=== PATIENT | female | born 1970 | race Caucasian/White ===

== ENCOUNTER → 2024-11-16 | Outpatient (REF) | payer BC ==
[2024-11-16 14:00] LABS: ALT/SGPT 35.0 U/L (7.0-40); AST/SGOT 25.0 U/L (<34); CALCIUM LEVEL 9.1 MG/DL (8.5-10.1); CARBON DIOXIDE LEVEL 29.0 MMOL/L (20-31); CHLORIDE LEVEL 109.0 MMOL/L (98-107); CREATININE FOR GFR 0.86 MG/DL (0.55-1.30); GLOMERULAR FILTRATION RATE 79.7 (>51); POTASSIUM SERUM 4.5 MMOL/L (3.5-5.1); SODIUM LEVEL 142.0 MMOL/L (136-145)
[2024-11-16 14:01] LABS: BASO # 0.1 10^3/uL (0.0-0.2); BASO % 1.2 % (0.0-1.0); EOS # 0.5 10^3/uL (0.0-0.5); EOS % 7.8 % (0.0-3.0); LYMPH # 1.7 10^3/uL (1.5-5.0); LYMPH % 26.6 % (24.0-44.0); MONO # 0.4 10^3/uL (0.0-0.8); MONO % 6.7 % (2.0-8.0); NEUTROPHILS # 3.7 10^3/uL (1.5-8.5); NEUTROPHILS % 57.1 % (36.0-66.0); PLATELET COUNT, AUTOMATED 270 10^3/uL (150-450)
[2024-11-16 14:02] LABS: FREE T4 1.19 NG/DL (0.89-1.76)
== END ==
LOC: M SFHCLERA 09:33
PROVIDERS: ATTEND Internal Medicine
DX: E89.0 Postprocedural hypothyroidism (principal)